=== PATIENT | female | born 1990 | race Caucasian/White ===

== ENCOUNTER 2018-11-18 04:51 | Emergency (ER) | payer BC, OTHER ==
[~2018-11-18] VITALS: Ht 170.2 cm; Wt 94.8 kg
[2018-11-18 04:58] VITALS: BP 136/93
== END 2018-11-18 05:13 | disposition home or self-care (01) ==
LOC: ER 04:59
DX: S20.312A Abrasion of left front wall of thorax, initial encounter (principal); Y08.89XA Assault by other specified means, initial encounter; Y93.89 Activity, other specified; Y92.89 Other specified places as the place of occurrence of the external cause; Y99.8 Other external cause status